=== PATIENT | female | born 1985 | race Caucasian/White ===

== ENCOUNTER 2018-07-31 12:59 | Emergency (ER) | payer OTHER ==
[~2018-07-31] VITALS: Ht 165.1 cm; Wt 88.5 kg
[2018-07-31 13:20] VITALS: BP 127/102
--- NOTE | 2018-07-31 13:21 | NUR ---
Patient ambulated to bed 5. RN evaluating patient at bedside.
--- NOTE | 2018-07-31 13:25 | NUR ---
33Y/F BIB SELF WITH C/O HEMATURIA X 1 DAY, BACK PAIN, URGENCY AND FREQUENCY. PT STATES SHE IS ALSO DETOXING FROM OPIOIDS. PT IS AAOX4, VSS, BED DOWN, BEDRAIL UP X 1, ER MD AWARE AND NOTIFIED OF PT STATUS. PMH: ZHANG'S PALSY, HESTRECTOMY
--- NOTE | 2018-07-31 14:00 | NUR ---
ERMD AT BEDSIDE
[2018-07-31] MEDS ORDERED: PHENAZOPYRIDINE 100 MG TAB PO ONE (14:05)
[2018-07-31 14:10] VITALS: BP 130/100
--- NOTE | 2018-07-31 14:10 | NUR ---
Patient discharged with v/s stable. Written and verbal after care instructions given and explained. Patient alert, oriented and verbalized understanding of instructions. Ambulatory with steady gait. All questions addressed prior to discharge. ID band removed. Patient advised to follow up with PMD. Rx of IBUPROFEN, PYRIDIUM, CEPHALEXIN given. Patient educated on indication of medication including possible reaction and side effects. Opportunity to ask questions provided and answered.
== END 2018-07-31 14:10 | disposition home or self-care (01) ==
LOC: MED 12:59
DX: N39.0 Urinary tract infection, site not specified (principal); F11.23 Opioid dependence with withdrawal; R03.0 Elevated blood-pressure reading, without diagnosis of hypertension; F17.200 Nicotine dependence, unspecified, uncomplicated; Z90.49 Acquired absence of other specified parts of digestive tract; Z90.710 Acquired absence of both cervix and uterus
CPT/HCPCS: 81002; 99283